=== PATIENT | female | born 1945 | race Caucasian/White ===

== ENCOUNTER 2018-04-09 15:39 | Inpatient (IN) | payer MEDICARE, BC ==
[~2018-04-09] VITALS: Ht 152.4 cm; Wt 69.5 kg
[2018-04-09] VITALS: BP 142/80
--- NOTE | 2018-04-09 16:00 | NUR ---
RESPONDED TO STROKE ALERT BED 9, PT RETURNIING FROM CT, AT BEDSIDE. HE REPORTS THAT AT 1200 WHILE SITTING AT TABLE PT EXPERIENCED VISUAL LOSS. HE TOOK HER TO PLANNED MEDICAL APPT AT 1339 IN [place] WHERE SHE EXPERIENCED GENERAL WEAKNESS, DIFFICULTY GETTING OUT OF CAR. HE DROVE HER HERE. PT CONSENTS FOR TELEMEDICINE CONSULT WITH SOC.
[2018-04-09 16:26] LABS: BASOPHILS % (AUTO) 0.4 % (0-1); EOSINOPHILS # (AUTO) 0.2 X10'3 (0-0.9); EOSINOPHILS % (AUTO) 1.9 % (0-6); HEMATOCRIT 41.1 % (35.0-45.0); HEMOGLOBIN 12.9 g/dl (12.0-16.0); LYMPHOCYTES # (AUTO) 1.4 X10'3 (1.1-4.8); LYMPHOCYTES % (AUTO) 14.3 % (21-51); MEAN CORPUSCULAR HEMOGLOBIN 24.5 PG (27.0-31.0); MEAN CORPUSCULAR HGB CONC 31.3 % (33.0-36.5); MEAN CORPUSCULAR VOLUME 78.4 FL (78-98); MEAN PLATELET VOLUME 7.2 FL (7.4-10.4); MONOCYTES # (AUTO) 0.7 X10'3 (0-0.9); MONOCYTES % (AUTO) 7.3 % (2-12); NEUTROPHILS # (AUTO) 7.1 X10'3 (1.8-7.7); NEUTROPHILS % (AUTO) 76.1 % (42-75); PLATELET COUNT 444 X10'3 (140-440); RED BLOOD COUNT 5.24 X10'6 (4.20-5.60); RED CELL DISTRIBUTION WIDTH 21.2 % (11.5-14.5); WHITE BLOOD COUNT 9.4 X10'3 (4.5-11.0)
--- NOTE | 2018-04-09 16:35 | NUR ---
FAXED FOR MED REC [facility] 1593
[2018-04-09 16:40] LABS: ALANINE AMINOTRANSFERASE 21 U/L (12-78); ALBUMIN 2.9 G/DL (3.4-5.0); ALBUMIN/GLOBULIN RATIO 0.7 (1.1-1.5); ALKALINE PHOSPHATASE 114 IU/L (46-116); ANION GAP 11 (8-16); ASPARTATE AMINO TRANSFERASE 14 U/L (10-37); BILIRUBIN,TOTAL 0.2 MG/DL (0.1-1.0); BLOOD UREA NITROGEN 16 MG/DL (7-18); BUN/CREATININE RATIO 22.5 (6.6-38.0); CALCIUM 10.8 MG/DL (8.5-10.1); CHLORIDE 98 MMOL/L (99-107); CREATININE 0.71 MG/DL (0.40-0.90); GLUCOSE 117 MG/DL (70-104); POTASSIUM 3.8 MMOL/L (3.5-5.1); SODIUM 133 MMOL/L (135-145); TOTAL CARBON DIOXIDE 24.5 MMOL/L (24-32); TOTAL PROTEIN 7.3 G/DL (6.4-8.2); eGFR 81 ML/MIN
[2018-04-09 16:43] LABS: PROTHROMBIN TIME 9.4 SECONDS (9.0-12.0)
[2018-04-09 16:44] LABS: INR 0.9 INR; PARTIAL THROMBOPLASTIN TIME 28 SECONDS (22-32)
[2018-04-09 16:50] LABS: MAGNESIUM 1.7 MG/DL (1.5-2.4); PHOSPHORUS 1.9 MG/DL (2.3-4.5)
--- NOTE | 2018-04-09 16:50 | NUR ---
1620 NEUROLOGIST ON [place] FOR EXAM. NIHSS 1 WITH LEFT PERIPHEAL VISION LOSS. PLAN FOR CTA HEAD AND NECK. DIFFICULT IV START, RN AT BEDSIDE MULTIPLE ATTEMPTS WITH US GUIDE.
[2018-04-09] MEDS ORDERED: iohexol 350MG/ML 100ml bottle IV ONE ×2 (17:10→18:32)
[2018-04-09] MEDS ORDERED: LANTUS SUBCUT (18:45)
[2018-04-09] MEDS ORDERED: CLON0.1T20 PO (18:45)
[2018-04-09] MEDS ORDERED: DULO60CA64 PO (18:45)
[2018-04-09] MEDS ORDERED: ESTR2TAB6 PO (18:45)
[2018-04-09] MEDS ORDERED: PIOG1TAB18 PO (18:45)
[2018-04-09] MEDS ORDERED: SIMV10TA6 PO (18:45)
--- NOTE | 2018-04-09 19:08 | NUR ---
PT RETURNED FROM CT
[2018-04-09 19:47] LABS: URINE AMPHETAMINE SCREEN NEGATIVE (Neg); URINE BARBITUATE SCREEN NEGATIVE (Neg); URINE BENZODIAZEPINES SCREEN NEGATIVE (Neg); URINE CANNABINOID SCREEN NEGATIVE (Neg); URINE COCAINE SCREEN NEGATIVE (Neg); URINE METHADONE SCREEN NEGATIVE (Neg); URINE OPIATE SCREEN NEGATIVE (Neg); URINE PHENCYCLIDINE SCREEN NEGATIVE (Neg)
[2018-04-09 19:50] LABS: COLOR,URINE YELLOW (Yellow); UA COLLECTION TYPE CLN CATCH MIDSTREAM
[2018-04-09 19:51] LABS: CLARITY,URINE SLIGHTLY CLOUDY (Clear); GLUCOSE, URINE NEGATIVE (Neg); PROTEIN,URINE 30 mg/dl (Neg)
[2018-04-09 19:53] LABS: KETONES,URINE NEGATIVE (Neg); LEUKOCYTE ESTERASE ,URINE Large (Neg); NITRITES, URINE NEGATIVE (Neg); OCCULT BLOOD,URINE MODERATE (Neg); UROBILINOGEN,URINE 0.2 E.U/dL (0.2-1.0)
[2018-04-09 19:55] LABS: BACTERIA,URINE FEW /HPF (Neg); CAL OXALATE CRYSTALS FEW /HPF (NEGATIVE); SQUAMOUS EPITHELIAL CELL,UR FEW /LPF (FEW); WBC CLUMPS,URINE MODERATE /HPF (NEGATIVE); WBC,URINE 30-50 /HPF (0-4); YEAST MODERATE /HPF (NEGATIVE)
[2018-04-09] MEDS: MESSAGE TO NURSING PO NR (20:25)
[2018-04-09] MEDS ORDERED: temazepam 15mg capsule PO PRN (21:00)
[2018-04-09] MEDS ORDERED: mag hydrox/Alum hydrox/simeth 30ml oral suspension PO PRN (21:40)
[2018-04-09] MEDS ORDERED: metoclopramide 5 mg/ml inj IV PRN (21:40)
[2018-04-09] MEDS ORDERED: HYDROmorphone 1 mg/ml syringe IV PRN (21:40)
[2018-04-09] MEDS ORDERED: acetaminophen 650mg rectal suppository RC PRN (21:40)
[2018-04-09] MEDS ORDERED: diphenhydrAMINE 50 mg/ml inj IV PRN (21:40)
[2018-04-09] MEDS ORDERED: acetaminophen 325mg tablet PO PRN ×2 (21:40)
[2018-04-09] MEDS ORDERED: magnesium hydroxide 30ml (MOM) UD suspension PO PRN (21:40)
[2018-04-09] MEDS ORDERED: morphine 4 MG/ML inj SYRINge IV PRN (21:40)
[2018-04-09] MEDS ORDERED: HYDROcodone/acetaminophen 5mg/325mg tablet PO PRN (21:40)
[2018-04-09] MEDS ORDERED: bisacodyl 10mg suppository rectal RC PRN (21:40)
[2018-04-09] MEDS ORDERED: diphenhydrAMINE 25mg capsule PO PRN (21:40)
[2018-04-09] MEDS ORDERED: ondansetron/PF 4mg/2ml inj IV PRN (21:40)
[2018-04-09] MEDS ORDERED: glucagon, human recombinant 1mg kit SUBCUT PRN (21:45)
[2018-04-09] MEDS ORDERED: MESSAGE TO PHARMACY PO ONE (21:45)
[2018-04-09] MEDS ORDERED: dextrose ORAL solution 15 GM/59 ML bottle PO PRN ×2 (21:45)
[2018-04-09] MEDS ORDERED: potassium Cl 20 mEq SR tablet PO PRN ×2 (21:45)
[2018-04-09] MEDS ORDERED: dextrose 50%-water 50ml dispensing syringe IV PRN ×2 (21:45)
[2018-04-09] MEDS ORDERED: POTASSIUM 40MEQ/500ML NS *****PERIPHERAL LINE REPLACE IV PRN (22:00)
[2018-04-09] MEDS: atorvastatin 10mg tablet PO SCH (22:09)
[2018-04-09] MEDS: sodium chloride 0.45% 1,000 ML IV SCH (22:09)
[2018-04-09] MEDS: duloxetine 30mg CAPSULE.DR PO SCH (22:09)
[2018-04-09] MEDS: CefTRIAXone/D5W-Rocephin 1gm 50 ML IV SCH (22:09)
[2018-04-09 22:22] LABS: HEMOGLOBIN A1C 8.4 % (4.5-6.2)
--- NOTE | 2018-04-09 23:12 | NUR ---
REPORT GIVEN TO EVETTE DOLAN ON NEURO
--- NOTE | 2018-04-09 23:30 | NUR ---
Patient brought to room from ER, via gurney. Able to follow simple directions and answers questions appropriately. R central line to neck. Patient able to pass bedside swallow study without any signs of coughing or distress. Carb controlled diet ordered. skin check complete and patient being DARTed at this time.
[2018-04-10] VITALS (8 sets, daily range): BP systolic 126–148; BP diastolic 71–91
[2018-04-10] MEDS: CefTRIAXone/D5W-Rocephin 1gm 50 ML IV SCH ×2 (07:14→20:01)
[2018-04-10] MEDS: Neutra Phos packet PO SCH ×3 (07:15→20:01)
[2018-04-10] MEDS: docusate sod 100mg capsule PO SCH ×2 (07:15→20:00)
[2018-04-10 07:16] LABS: ALANINE AMINOTRANSFERASE 20 U/L (12-78); ALBUMIN 2.5 G/DL (3.4-5.0); ALBUMIN/GLOBULIN RATIO 0.6 (1.1-1.5); ALKALINE PHOSPHATASE 101 IU/L (46-116); ANION GAP 12 (8-16); ASPARTATE AMINO TRANSFERASE 11 U/L (10-37); BASOPHILS % (AUTO) 0.3 % (0-1); BILIRUBIN,TOTAL 0.3 MG/DL (0.1-1.0); BLOOD UREA NITROGEN 11 MG/DL (7-18); CALCIUM 10.2 MG/DL (8.5-10.1); CHLORIDE 101 MMOL/L (99-107); CHOL/HDL RATIO 2.8 (0.00-4.99); CHOLESTEROL 146 MG/DL (0-200); CREATININE 0.55 MG/DL (0.40-0.90); EOSINOPHILS # (AUTO) 0.2 X10'3 (0-0.9); EOSINOPHILS % (AUTO) 1.6 % (0-6); GLUCOSE 123 MG/DL (70-104); HDL CHOLESTEROL 52 MG/DL (35-60); HEMATOCRIT 37.2 % (35.0-45.0); HEMOGLOBIN 12.1 g/dl (12.0-16.0); LDL CHOLESTEROL 71 MG/DL (50-100); LYMPHOCYTES # (AUTO) 1.1 X10'3 (1.1-4.8); LYMPHOCYTES % (AUTO) 9.5 % (21-51); MEAN CORPUSCULAR HEMOGLOBIN 25.3 PG (27.0-31.0); MEAN CORPUSCULAR HGB CONC 32.4 % (33.0-36.5); MEAN CORPUSCULAR VOLUME 78.2 FL (78-98); MEAN PLATELET VOLUME 7.3 FL (7.4-10.4); MONOCYTES # (AUTO) 1.1 X10'3 (0-0.9); MONOCYTES % (AUTO) 9.2 % (2-12); NEUTROPHILS # (AUTO) 9.7 X10'3 (1.8-7.7); NEUTROPHILS % (AUTO) 79.4 % (42-75); PLATELET COUNT 462 X10'3 (140-440); POTASSIUM 3.6 MMOL/L (3.5-5.1); RED BLOOD COUNT 4.76 X10'6 (4.20-5.60); SODIUM 133 MMOL/L (135-145); TOTAL CARBON DIOXIDE 20.3 MMOL/L (24-32); TOTAL PROTEIN 6.5 G/DL (6.4-8.2); TRIGLYCERIDES 103 MG/DL (20-135); WHITE BLOOD COUNT 12.1 X10'3 (4.5-11.0); eGFR > 90 ML/MIN
[2018-04-10] MEDS: sodium chloride 0.45% 1,000 ML IV SCH ×2 (07:39→11:21)
[2018-04-10] MEDS ORDERED: cloNIDine 0.1 mg tablet PO SCH (08:00)
[2018-04-10] MEDS: K and/or MAG REPLACEMENT MC SCH (08:00)
[2018-04-10] MEDS ORDERED: pneumococcal 23-VAL P-sac vacc 25 mcg/0.5ml vial IMVAC ONE (10:00)
[2018-04-10] MEDS: MESSAGE TO NURSING PO NR (10:00)
[2018-04-10] MEDS: aspirin 81mg tab.chew PO SCH (11:20)
--- NOTE | 2018-04-10 13:14 | NUR ---
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 Do we need to start another anticoag or is asa 81 daily sufficient? This is all she has received this admission. Pls advise
--- NOTE | 2018-04-10 13:46 | NUR ---
DM Consult: A1C 8.4. Pt not present during RD visit; written/verbal DM ed w/ RD contact information left at bedside. Pt admit w/ stroke-like symptoms. PO pending. LBM 04/09 on colace. Will monitor for additional protien needs w/ PO hx this admit. Addendum: 04/10/18 at [address] Amended: Links added.
[2018-04-10] MEDS: insulin Lispro (HumaLOG) vial - multi-dose SQ SCH ×2 (14:25→20:00)
--- NOTE | 2018-04-10 15:34 | NUR ---
PAGER ID: [phone] MESSAGE: Manisha Morales7 re Ms Scott in [phone]- would you like a tele neuro consult? If so I have a paper for you to sign here and we will arrange for Addendum: 04/10/18 at 1719 by Radha Lainez RN spoke to hospitalist, he is aware of stroke and deficits, does not want a neuro consult at this time.
--- NOTE | 2018-04-10 18:30 | NUR ---
Patient in room [facility]TH[facility] 4009. I have received report from KELSI Dyer and had the opportunity to ask questions and assume patient care. patient finishing up with dinner at this time.
--- NOTE | 2018-04-10 19:30 | NUR ---
Patient had been inct of stool. RESEARCH TECHNICIAN looking for gait belt and socks in order to transfer patient. Patient slid from side of bed to sitting on the floor. L leg was twisted behind her. patient was lifted by 2 staff members and placed back to bed. VS taken and patient assessed for injuries. L knee looked slightly edematous and possibly bruised - not sure if that was already there. MD called and informed of fall. Asked him to assess patient, as he did not want x ray of her leg. He came up to assess - he stated that patient is not c/o pain, so therefore, no need for x ray. I explained my concern that patient has lack of sensation on her left side. I was told in report that she seemed to guess with stimulus assessment. Patient also says yes to all questions, including "do you want to walk around the room".
[2018-04-10] MEDS: lactobacillus rhamnosus 10,000 MMU CELLS/CAPSULE PO SCH (20:00)
[2018-04-10] MEDS: duloxetine 30mg CAPSULE.DR PO SCH (20:00)
[2018-04-10] MEDS: atorvastatin 10mg tablet PO SCH (20:00)
[2018-04-10] MEDS: famotidine 20mg tablet PO SCH (21:00)
[2018-04-11 04:00] VITALS: BP 146/88
[2018-04-11] MEDS: sodium chloride 0.45% 1,000 ML IV SCH ×3 (04:12→23:39)
--- NOTE | 2018-04-11 06:53 | NUR ---
Problems reprioritized. Patient report given, questions answered & plan of care reviewed with KELSI Londono.
[2018-04-11 06:58] LABS: BASOPHILS % (AUTO) 0.5 % (0-1); EOSINOPHILS # (AUTO) 0.2 X10'3 (0-0.9); EOSINOPHILS % (AUTO) 2.4 % (0-6); HEMATOCRIT 36.7 % (35.0-45.0); HEMOGLOBIN 11.8 g/dl (12.0-16.0); LYMPHOCYTES % (AUTO) 21.7 % (21-51); MEAN CORPUSCULAR HEMOGLOBIN 25.3 PG (27.0-31.0); MEAN CORPUSCULAR HGB CONC 32.3 % (33.0-36.5); MEAN CORPUSCULAR VOLUME 78.5 FL (78-98); MEAN PLATELET VOLUME 7.4 FL (7.4-10.4); MONOCYTES # (AUTO) 0.9 X10'3 (0-0.9); MONOCYTES % (AUTO) 9.5 % (2-12); NEUTROPHILS % (AUTO) 65.9 % (42-75); PLATELET COUNT 510 X10'3 (140-440); RED BLOOD COUNT 4.67 X10'6 (4.20-5.60); RED CELL DISTRIBUTION WIDTH 20.9 % (11.5-14.5); WHITE BLOOD COUNT 9.1 X10'3 (4.5-11.0)
[2018-04-11 07:10] LABS: ALANINE AMINOTRANSFERASE 16 U/L (12-78); ALBUMIN 2.4 G/DL (3.4-5.0); ALBUMIN/GLOBULIN RATIO 0.6 (1.1-1.5); ALKALINE PHOSPHATASE 84 IU/L (46-116); ANION GAP 10 (8-16); ASPARTATE AMINO TRANSFERASE 12 U/L (10-37); BILIRUBIN,TOTAL 0.3 MG/DL (0.1-1.0); BLOOD UREA NITROGEN 12 MG/DL (7-18); BUN/CREATININE RATIO 18.5 (6.6-38.0); CALCIUM 10.4 MG/DL (8.5-10.1); CHLORIDE 104 MMOL/L (99-107); CREATININE 0.65 MG/DL (0.40-0.90); GLUCOSE 107 MG/DL (70-104); POTASSIUM 3.5 MMOL/L (3.5-5.1); SODIUM 139 MMOL/L (135-145); TOTAL CARBON DIOXIDE 25.4 MMOL/L (24-32); TOTAL PROTEIN 6.4 G/DL (6.4-8.2); eGFR 90 ML/MIN
[2018-04-11] MEDS: lactobacillus rhamnosus 10,000 MMU CELLS/CAPSULE PO SCH ×2 (07:59→20:01)
[2018-04-11] MEDS: CefTRIAXone/D5W-Rocephin 1gm 50 ML IV SCH ×2 (07:59→20:01)
[2018-04-11] MEDS: Neutra Phos packet PO SCH ×2 (07:59→13:48)
[2018-04-11] MEDS: enoxaparin 40mg/0.4ml syringe SUBCUT SCH (07:59)
[2018-04-11] MEDS: docusate sod 100mg capsule PO SCH ×2 (07:59→20:01)
[2018-04-11] MEDS: aspirin 81mg tab.chew PO SCH (07:59)
[2018-04-11 08:00] VITALS: BP 147/89
[2018-04-11] MEDS: K and/or MAG REPLACEMENT MC SCH (08:00)
[2018-04-11] MEDS: insulin Lispro (HumaLOG) vial - multi-dose SQ SCH ×3 (10:54→19:10)
[2018-04-11 11:16] VITALS: BP 108/67
[2018-04-11 13:29] VITALS: BP 140/60
--- NOTE | 2018-04-11 17:09 | NUR ---
LAB CALLED TO REPORT SECOND BLOOD CULTURE RESULT WITH GRAM + COCCI IN PAIRS AND SHORT CHAINS. DR. BECKHAM PAGED WITH THESE RESULTS AND PATIENT CONDITION REPORT.
[2018-04-11 18:00] VITALS: BP 151/80
--- NOTE | 2018-04-11 18:25 | NUR ---
Received report from Spring DOLAN. Assumed care of patient.
--- NOTE | 2018-04-11 18:29 | NUR ---
Problems reprioritized. Patient report given, questions answered & plan of care reviewed with KELSI ALAS.
[2018-04-11] MEDS: MESSAGE TO NURSING PO NR (19:03)
[2018-04-11] MEDS: duloxetine 30mg CAPSULE.DR PO SCH (20:01)
[2018-04-11] MEDS: famotidine 20mg tablet PO SCH (20:01)
[2018-04-11] MEDS: atorvastatin 10mg tablet PO SCH (20:01)
[2018-04-11] MEDS ORDERED: insulin glargine (Lantus) pen - multi-dose SQ SCH (21:00)
[2018-04-11 22:00] VITALS: BP 127/82
[2018-04-12 02:00] VITALS: BP 133/78
[2018-04-12] MEDS: sodium chloride 0.45% 1,000 ML IV SCH (04:09)
[2018-04-12 06:00] VITALS: BP 139/91
--- NOTE | 2018-04-12 06:50 | NUR ---
Report given to Yanet DOLAN.
[2018-04-12] MEDS: docusate sod 100mg capsule PO SCH (07:32)
[2018-04-12] MEDS: lactobacillus rhamnosus 10,000 MMU CELLS/CAPSULE PO SCH (07:33)
[2018-04-12] MEDS: enoxaparin 40mg/0.4ml syringe SUBCUT SCH (07:33)
[2018-04-12 08:00] LABS: ALANINE AMINOTRANSFERASE 15 U/L (12-78); ALBUMIN 2.2 G/DL (3.4-5.0); ALBUMIN/GLOBULIN RATIO 0.6 (1.1-1.5); ALKALINE PHOSPHATASE 79 IU/L (46-116); ANION GAP 12 (8-16); ASPARTATE AMINO TRANSFERASE 15 U/L (10-37); BILIRUBIN,TOTAL 0.3 MG/DL (0.1-1.0); BLOOD UREA NITROGEN 10 MG/DL (7-18); BUN/CREATININE RATIO 15.9 (6.6-38.0); CHLORIDE 102 MMOL/L (99-107); CREATININE 0.63 MG/DL (0.40-0.90); GLUCOSE 184 MG/DL (70-104); SODIUM 135 MMOL/L (135-145); TOTAL CARBON DIOXIDE 21.1 MMOL/L (24-32); TOTAL PROTEIN 5.9 G/DL (6.4-8.2); eGFR > 90 ML/MIN
[2018-04-12] MEDS: K and/or MAG REPLACEMENT MC SCH (08:00)
[2018-04-12] MEDS ORDERED: insulin glargine (Lantus) pen - multi-dose SQ SCH (08:00)
[2018-04-12 08:03] LABS: POTASSIUM 3.5 MMOL/L (3.5-5.1)
[2018-04-12] MEDS: insulin Lispro (HumaLOG) vial - multi-dose SQ SCH ×2 (08:48→13:44)
[2018-04-12] MEDS: piperacillin/tazo 4.5gm/100ml 100 ML IV SCH ×2 (08:51→15:09)
[2018-04-12] MEDS: aspirin 81mg tab.chew PO SCH (08:51)
[2018-04-12 09:14] LABS: BASOPHILS # (AUTO) 0.1 X10'3 (0-0.2); BASOPHILS % (AUTO) 0.7 % (0-1); EOSINOPHILS # (AUTO) 0.4 X10'3 (0-0.9); EOSINOPHILS % (AUTO) 3.9 % (0-6); HEMATOCRIT 35.3 % (35.0-45.0); HEMOGLOBIN 11.7 g/dl (12.0-16.0); LYMPHOCYTES # (AUTO) 1.8 X10'3 (1.1-4.8); LYMPHOCYTES % (AUTO) 17.6 % (21-51); MEAN CORPUSCULAR HEMOGLOBIN 25.7 PG (27.0-31.0); MEAN CORPUSCULAR HGB CONC 33.1 % (33.0-36.5); MEAN CORPUSCULAR VOLUME 77.8 FL (78-98); MEAN PLATELET VOLUME 7.5 FL (7.4-10.4); MONOCYTES % (AUTO) 9.6 % (2-12); NEUTROPHILS # (AUTO) 7.1 X10'3 (1.8-7.7); NEUTROPHILS % (AUTO) 68.2 % (42-75); PLATELET COUNT 564 X10'3 (140-440); RED BLOOD COUNT 4.53 X10'6 (4.20-5.60); RED CELL DISTRIBUTION WIDTH 20.4 % (11.5-14.5); WHITE BLOOD COUNT 10.4 X10'3 (4.5-11.0)
[2018-04-12 10:00] VITALS: BP 106/71
--- NOTE | 2018-04-12 17:10 | NUR ---
Received transfer orders for pt to transfer to [facility] today. Personal items packed. [employer] arrived at 1710 to picking tech pt via w/c and transport to [facility]. TC placed to SHWETA Hillman at [facility] and gave report. Discharge from [facility] at 1710.
== END 2018-04-12 17:00 | DRG 64 ==
LOC: ER 15:39 → ED HOLD 21:39 → ORTHO 4S 23:37
PROVIDERS: ADMIT Family Medicine; ATTEND Internal Medicine
PROC: 02HV33Z Insertion of Infusion Device into Superior Vena Cava, Percutaneous Approach (ICD-10-PCS; principal; 2018-04-09)
PROC: 3E0234Z Introduction of Serum, Toxoid and Vaccine into Muscle, Percutaneous Approach (ICD-10-PCS; 2018-04-10)
DX: I63.9 Cerebral infarction, unspecified (principal); G93.41 Metabolic encephalopathy; E43 Unspecified severe protein-calorie malnutrition; N39.0 Urinary tract infection, site not specified; I10 Essential (primary) hypertension; E78.5 Hyperlipidemia, unspecified; E11.9 Type 2 diabetes mellitus without complications; E78.00 Pure hypercholesterolemia, unspecified; E87.6 Hypokalemia; E83.39 Other disorders of phosphorus metabolism; Z79.82 Long term (current) use of aspirin; Z79.4 Long term (current) use of insulin; Z79.899 Other long term (current) drug therapy; Z23 Encounter for immunization; Z68.29 Body mass index [BMI] 29.0-29.9, adult
CPT/HCPCS: 36415; 36556; 70450; 70496; 70498; 70544; 70551; 71045; 80053; 80061; 80305; 81001; 82948; 83036; 83605; 83735; 83880; 84100; 84443; 84484; 85025; 85610; 85730; 86592; 87040; 87070; 87077; 87088; 87186; 93005; 93306; 97110; 97116; 97161; 97530; 99285; G0378; J0696; J1650; J1815; J2543; Q9967